=== PATIENT | male | born 1965 | race Caucasian/White ===

== ENCOUNTER 2021-10-27 08:09 | Outpatient (CLI) | payer OTHER, SELFPAY ==
[2021-10-27 13:04] LABS: Chloride* 104 mmol/L (96-114); Sodium* 138 mmol/L (135-149)
[2021-10-27 13:05] LABS: Potassium* 4.3 mmol/L (3.6-5.1)
[2021-10-27 13:07] LABS: Carbon Dioxide* 26 mmol/L (20-32); Cholesterol* 181 mg/dL (90-199); Creatinine* 0.8 mg/dL (0.5-1.5); Estimated Glomerular Filt Rate 104.51
[2021-10-27 13:08] LABS: Albumin* 4.1 g/dL (3.3-5.0)
[2021-10-27 13:08] LABS: Blood Urea Nitrogen* 15 mg/dL (7-30); Glucose* 126 mg/dL (60-115); HDL Cholesterol* 27 mg/dL (>=40); LDL Cholesterol Calculated 117 mg/dL (<100); Triglycerides* 187 mg/dL (40-149)
[2021-10-27 13:11] LABS: Alanine Aminotransferase* 20 U/L (4-50); Alkaline Phosphatase* 96 U/L (40-150); Aspartate Amino Transferase* 21 U/L (12-35); Bilirubin Direct* 0.3 mg/dL (0.0-0.5); Bilirubin Total* 0.4 mg/dL (0.1-1.5); Total Protein* 6.8 g/dL (6.0-8.3)
== END 2021-10-27 08:10 | disposition home or self-care (01) ==
PROVIDERS: PCP Family Medicine; Visit Provider Family Medicine
DX: Z00.00 Encounter for general adult medical examination without abnormal findings (principal); L98.9 Disorder of the skin and subcutaneous tissue, unspecified; E66.9 Obesity, unspecified; R03.0 Elevated blood-pressure reading, without diagnosis of hypertension; Z79.899 Other long term (current) drug therapy; Z01.818 Encounter for other preprocedural examination
CPT/HCPCS: 80048; 80061; 80076

== ENCOUNTER 2021-10-30 08:10 | Outpatient (CLI) | payer OTHER, SELFPAY | END 2021-10-30 08:11 | disposition home or self-care (01) | LOC: OP CLINIC 08:11 | PROVIDERS: PCP Family Medicine; Visit Provider Surgery | DX: Z12.11 Encounter for screening for malignant neoplasm of colon (principal); K57.30 Diverticulosis of large intestine without perforation or abscess without bleeding; K64.4 Residual hemorrhoidal skin tags | CPT/HCPCS: 45380; 88305; 99153; J2250; J3010 ==

== ENCOUNTER 2023-06-17 17:45 | Outpatient (CLI) | payer OTHER, SELFPAY ==
--- NOTE | 2023-06-17 18:15 | MR_ITS ---
[address] [address] Phone:?[phone] Fax:?[phone] Referring Physician Information: Mohamud Ahn M.D. [address] [facility] [address] Phone:?[phone] Fax:?[phone] Patient:Roni Harper D.O.B:?1965 Sex:?Male Phone:?[phone] [facility] MRN:?[id number] Exam Date:?06/17/2023 EXAM: MRI OF THE LUMBAR SPINE WITHOUT CONTRAST CLINICAL INFORMATION: Low back and right leg pain. TECHNICAL INFORMATION: Sagittal fast spin-echo T2-weighted, T1-weighted, STIR as well as axial fast spin-echo T1 and T2-weighted images of the lumbar spine were obtained on a 1.5 [employer] MRI scanner.?SEDATION:?None.?CONTRAST:?None. INTERPRETATION: No comparison. 1 to 2 mm retrolisthesis of L3 on L4. No acute fracture or spondylolysis, although chronic Scheuermann's-type changes are demonstrated throughout the lumbar and imaged lower thoracic spine. Conus is normal and terminates at L1. Imaged upper sacrum and paraspinal soft tissue structures are notable for mild bilateral ventral sacroiliac joint osteophytosis. Disc desiccation and annular bulging are demonstrated at L5-S1 through L2-3 with isolated annular bulging at L1-2. Disc space narrowing is mild to moderate at L3-4. L5-S1: No central stenosis or traversing neural compression. Mild right facet arthrosis with mild bilateral chronic foraminal narrowing. 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 L4-5: Annular bulging, mild bilateral facet arthrosis with redundant ligamentum flavum contribute to mild relative central stenosis, severe right/mild left subarticular recess narrowing and subarticular impingement upon the traversing right L5 nerve root. Chronic, moderate bilateral medial foraminal narrowing. L3-4: Mild left subarticular recess narrowing without traversing neural compression or central stenosis. Mild right facet hypertrophy with mild to moderate bilateral chronic foraminal narrowing. L2-3: No central stenosis or traversing neural compression. Mild left facet hypertrophy with patent foramina. L1-2: Annular bulging is more prominent left far laterally now central stenosis or traversing neural compression. Mild left facet hypertrophy with patent foramina. T12-L1 and T11-12: Normal posterior disc margins and facets. Patent foramina. CONCLUSION: Multilevel degenerative lumbar spondylosis and chronic Scheuermann's-type changes with the following notable findings: 1. Annular bulging, bilateral facet arthrosis and redundant ligamentum flavum (right greater than left) contribute to mild L4-5 central stenosis with subarticular impingement upon the traversing right L5 nerve root. 2. No disc herniation, acute fracture or spondylolysis. 3. Mild bilateral L4-5 and right L5-S1 facet arthrosis. 4. Multilevel chronic foraminal narrowing that varies from mild to moderate without ganglionic compression as detailed above. [place] Electronically signed on 06/18/2023 10:59:00 AM by Antolin Pete M.D.
== END 2023-06-17 17:46 | disposition home or self-care (01) ==
LOC: MRI 17:47
PROVIDERS: PCP Family Medicine; Visit Provider Family Medicine
DX: M54.10 Radiculopathy, site unspecified (principal); M54.50 Low back pain, unspecified
CPT/HCPCS: 72148

== ENCOUNTER 2023-08-19 15:15 | Outpatient (RCR) | payer OTHER, SELFPAY | END 2023-12-17 23:59 | disposition home or self-care (01) | PROVIDERS: PCP Family Medicine; Visit Provider Family Medicine | DX: M54.10 Radiculopathy, site unspecified (principal); R29.898 Other symptoms and signs involving the musculoskeletal system; Z51.89 Encounter for other specified aftercare | CPT/HCPCS: 97012; 97035; 97110; 97140; 97162 ==

== ENCOUNTER 2024-04-07 14:15 | Outpatient (CLI) | payer OTHER, SELFPAY | END 2024-04-07 14:16 | disposition home or self-care (01) | PROVIDERS: PCP Family Medicine; Visit Provider Family Medicine | DX: E78.5 Hyperlipidemia, unspecified (principal); E66.9 Obesity, unspecified; R63.5 Abnormal weight gain; E88.810 Metabolic syndrome | CPT/HCPCS: 80061; 84439; 84443 ==

== ENCOUNTER 2024-04-08 15:15 | Outpatient (RCR) | payer OTHER, SELFPAY | END 2024-08-06 23:59 | disposition home or self-care (01) | PROVIDERS: PCP Family Medicine; Visit Provider Orthopaedic Surgery Orthopaedic Surgery of the Spine | DX: Z48.89 Encounter for other specified surgical aftercare (principal); Z51.89 Encounter for other specified aftercare | CPT/HCPCS: 97035; 97110; 97140; 97162 ==

== ENCOUNTER 2025-03-05 15:21 | Outpatient (CLI) | payer OTHER, SELFPAY | END 2025-03-05 15:22 | disposition home or self-care (01) | PROVIDERS: PCP Family Medicine; Visit Provider Family Medicine | DX: E88.810 Metabolic syndrome (principal); E78.5 Hyperlipidemia, unspecified; Z12.5 Encounter for screening for malignant neoplasm of prostate | CPT/HCPCS: 80048; 80061; G0103 ==